=== PATIENT | male | born 2000 | race African-American/Black ===

== ENCOUNTER 2019-01-31 17:42 | Emergency (ER) | payer OTHER ==
[~2019-01-31] VITALS: Ht 167.6 cm; Wt 61.2 kg
[2019-01-31 18:01] VITALS: BP 120/75
--- NOTE | 2019-01-31 19:00 | NUR ---
18Y M BIBA C/O BILAT WRIST PAIN S/P FALL 1500 TODAY. NO DEFORMITY, +CMS, DECREASE ROM. PATIENT STATES HE WAS NOT WEARING A HELMET, BUT DENIES ANY HEAD INJURY OR LOC. PATIENT GCS 15, AAOX4, AMBULATORY WITH STEADY GAIT
--- NOTE | 2019-01-31 19:15 | NUR ---
PATIENT BEING EVALUATED BY MAVIS SUBRAMANIAN
--- NOTE | 2019-01-31 19:25 | NUR ---
L WRIST AND FOREARM SPLINT PLACED ON PT. +CSM
--- NOTE | 2019-01-31 19:29 | NUR ---
Patient discharged with v/s stable. Written and verbal after care instructions given and explained. Patient alert, oriented and verbalized understanding of instructions. Ambulatory with steady gait. All questions addressed prior to discharge. ID band removed. Patient advised to follow up with PMD. Rx of TYLENOL 500MG given. Patient educated on indication of medication including possible reaction and side effects. Opportunity to ask questions provided and answered.
[2019-01-31 19:30] VITALS: BP 136/82
== END 2019-01-31 19:30 | disposition home or self-care (01) ==
LOC: MED 17:42
DX: S63.501A Unspecified sprain of right wrist, initial encounter (principal); S63.502A Unspecified sprain of left wrist, initial encounter; V27.0XXA Motorcycle driver injured in collision with fixed or stationary object in nontraffic accident, initial encounter; Y93.89 Activity, other specified; Y92.89 Other specified places as the place of occurrence of the external cause; Y99.8 Other external cause status
CPT/HCPCS: 73110; 99283